=== PATIENT | female | born 2000 | race Caucasian/White ===

== ENCOUNTER 2021-10-19 15:22 | Emergency (ER) | payer OTHER, SELFPAY ==
[2021-10-19 15:30] VITALS: BP 123/61; PULSE 69; RESP 16; TEMP 36.4; O2SAT 100
[2021-10-19 15:35] VITALS: BP 123/61; PULSE 69; RESP 16; TEMP 36.4; O2SAT 100
--- NOTE | 2021-10-19 15:39 | ED.EYEPROB ---
HPI - Eye Problem General Chief complaint: Eye Problems Stated complaint: left eye pain Time Seen by Provider: 10/19/21 15:39 Source: patient and RN notes reviewed Mode of arrival: ambulatory Limitations: no limitations History of Present Illness HPI Narrative: 21-year-old female presents concern for pain, redness, swelling to the left lower eyelid. She reports symptoms started 2 days ago. She denies injury or trauma to the eye. Denies vision changes. Reports she has been using eyedrops and warm compresses without relief. chief complaint: eye pain Related Data Home Medications Medication Instructions Recorded Confirmed No Home Medications 10/19/21 10/19/21 Allergies Allergy/AdvReac Type Severity Reaction Status Date / Time No Known Allergies Allergy Unknown Unverified 07/01/19 14:20 No Known Allergies Allergy Uncoded 07/01/19 14:20 Review of Systems Review of Systems: CONSTITUTIONAL: Denies malaise, chills, sweats, or fever. EYES: Denies visual changes. Reports lower eyelid redness tenderness and swelling with crusty drainage this morning. ENT: Denies rhinorrhea, congestion, sinus pain, otalgia or sore throat. SKIN: Denies rash or itching. NEUROLOGIC: Denies numbness, weakness, or headache. PSYCHIATRIC: Denies anxiety or depression. All systems reviewed & are unremarkable except as noted in HPI and below PMFSH Comments At time of signature, agree with nursing past medical, surgical, social and family history. There is no relevant family history pertinent to the presenting complaint Exam Narrative: GENERAL: Well-appearing, well-nourished, and in no acute distress. HEAD: Normocephalic, atraumatic. EYES: PERRLA, sclera clear, and EOMI. No nystagmus. Bilateral conjunctivae clear. Upper eyelid unremarkable, no periorbital edema noted. Lower lid edematous, erythematous without visual nodule noted to the medial commisure ENT: Mucous membranes moist NECK: Supple. CHEST: No respiratory distress. Speaks in full sentences. HEART: Regular rate and rhythm. SKIN: Warm, dry, no visible rash. NEURO: Alert and oriented x3. PSYCH: Normal mood and affect Course Course Emergency Course: Patient is aware of diagnosis, understands and agrees to treatment plan. Anticipatory guidance given. Patient agrees to follow-up as directed and is aware of reasons to seek care at the emergency department. Portions of this record may have been created with voice recognition software Level of Care: Express Care Visit Vital Signs Vital signs: Vital Signs Temperature 97.6 F 10/19/21 15:30 Pulse Rate 69 10/19/21 15:30 Respiratory Rate 16 10/19/21 15:30 Blood Pressure 123/61 10/19/21 15:30 Pulse Oximetry 100 10/19/21 15:30 Temperature 97.6 F 10/19/21 15:35 Pulse Rate 69 10/19/21 15:35 Respiratory Rate 16 10/19/21 15:35 Blood Pressure 123/61 10/19/21 15:35 Pulse Oximetry 100 10/19/21 15:35 Reviewed. MDM - Eye Problem MDM Narrative Medical decision making narrative: Consideration of the following conditions may be warranted for the presenting problem, they are not final diagnoses: Bacterial conjunctivitis, allergic conjunctivitis, viral conjunctivitis, foreign body, blepharitis, chalazion, hordeolum, corneal abrasion, preseptal cellulitis, orbital cellulitis. No evidence of proptosis, ophthalmoplegia, vision loss, pain with eye movement. Exam findings show no acute concerns or changes; patient is non-toxic appearing and is in no distress. Patient is appropriate for outpatient treatment and follow-up. Critical Care Time Critical Care Time Critical Care Time: No Discharge Plan Discharge Clinical Impression: Infection of eyelid Patient Disposition: Home, Self-Care Condition: Stable Instructions: Antibiotic Form Additional Instructions: Do not touch or rub your eye. Use a warm on your eye 3-5 times daily Use eyedrops as directed, take antibiotics as directed Practice [facility]
== END 2021-10-19 16:03 | disposition home or self-care (01) ==
PROVIDERS: Emergency Provider Nurse Practitioner; PCP Physician Assistant
DX: H01.9 Unspecified inflammation of eyelid (principal); M41.9 Scoliosis, unspecified
CPT/HCPCS: 99213; G0463

== ENCOUNTER 2022-12-13 10:29 | Emergency (ER) | payer OTHER, SELFPAY ==
[2022-12-13] VITALS (13 sets, daily range): BP systolic 104–132; BP diastolic 51–70; PULSE 95–127; RESP 18–20; TEMP 36.2; O2SAT 97–100
--- NOTE | ~2022-12-13 | CT_ITS ---
EXAMINATION: CT abdomen pelvis w con DATE: 12/13/2022 11:52 INDICATION: Abdominal pain with nausea, vomiting and diarrhea. TECHNIQUE: Computed tomography (CT) of the abdomen and pelvis was performed with 100 mL Omnipaque-350 intravenous contrast. Automated exposure control and iterative reconstruction technique were employe d. The dose-length product was 1619.52 mGy-cm. COMPARISON: 07/01/2019 FINDINGS: Lung bases are clear. Heart size is normal. No pericardial or pleural effusion. 2.1 cm and 1.5 cm sub tle enhancing nodules in the right hepatic lobe. The gallbladder, spleen, pancreas, bilateral adrenal glands and kidneys are normal. There is some fluid scattered throughout the large and small bowel co nsistent with provided history of diarrhea. No bowel obstruction. Normal appendix. Bladder, uterus an d bilateral adnexa are normal. No free intraperitoneal gas or fluid. No pathologically enlarged abdom inal or pelvic lymphadenopathy. Very small fat-containing umbilical hernia. Instrumented C5-T12 poste rior spinal fusion with bilateral vertical missael and pedicle screw fixation. Mild lumbar levoscoliosis with mild spondylosis. IMPRESSION: 1. Fluid scattered throughout the large and small bowel consistent with provided history of diarrhea. No other acute intra-abdominal/pelvic process. 2. A couple indeterminate subtly enhancing right hepatic lobe nodules the larger measuring 2.1 cm. Gi kirsten patient age and in the absence of known history of liver disease or malignancy favor a benign sarkis ology such as focal nodular hyperplasia or hepatic adenoma. Would recommend further evaluation with m ultiphase pre and postcontrast MRI. Reviewed, dictated and finalized at location A. K CARRIER IMPRESSION: 1. Fluid scattered throughout the large and small bowel consistent with provide d history of diarrhea. No other acute intra-abdominal/pelvic process. 2. A couple indeterminate subtly enhancing right hepatic lobe nodules the large r measuring 2.1 cm. Given patient age and in the absence of known history of li martha disease or malignancy favor a benign etiology such as focal nodular hyperpl lori or hepatic adenoma. Would recommend further evaluation with multiphase pre and postcontrast MRI.
--- NOTE | 2022-12-13 10:46 | ED.NAVMDI ---
HPI - Nausea/Vomiting/Diarrhea General Chief complaint: Nausea/Vomiting/Diarrhea Stated complaint: N/V/D X1D Time Seen by Provider: 12/13/22 10:34 Source: patient Mode of arrival: ambulatory Limitations: no limitations History of Present Illness HPI Narrative: 22-year-old female with history of PCOS and IBS presents today with complaints of nausea, vomiting, diarrhea, and fever that started last night. Patient states the last thing that she ate prior to getting sick was a hamburger from [employer]. Her significant other is at the right great wing without any symptoms. Patient states she has been unable to keep any liquids down since she started vomiting yesterday. She did have some generalized abdominal pain but mostly when she is trying to eat or drink anything. Abdomen currently is not painful. Denies dysuria, hematuria, urgency. She does endorse some low back pain patient does have history of scoliosis with surgery. Related Data Allergies Allergy/AdvReac Type Severity Reaction Status Date / Time No Known Allergies Allergy Unknown Verified 12/13/22 10:38 Review of Systems Review of Systems: CONSTITUTIONAL: Denies fever, chills, or sweats. EYES: Denies visual changes, redness, or discharge. ENT: Denies rhinorrhea, congestion, sore throat, or otalgia. CARDIOVASCULAR: Denies chest pain, palpitations, or edema. RESPIRATORY: Denies cough or dyspnea. GASTROINTESTINAL: Abdominal pain, nausea, vomiting, diarrhea. GENITOURINARY: Denies dysuria or hematuria. SKIN: Denies rash or itching. MUSCULOSKELETAL: Low back pain. Denies joint pain, or myalgia. NEUROLOGIC: Denies headache, numbness, dizziness, or weakness. PSYCHIATRIC: Denies anxiety or depression. [facility] Past Medical History Medical History History of IBS PCOS (polycystic ovarian syndrome) Surgical History Surgical History Previous back surgery Social History Social History (Updated 09/17/22 @ 14:41 by Katia Mascorro MA) Smoking status: Never smoker Alcohol intake: never Substance use: never Living arrangements: with family Occupation/Education: occupation Gender identity (if verbalized by the patient): Female Sexual Orientation (if Verbalized by the Patient): Straight or Heterosexual Exam Narrative: GENERAL: ill appearing, non toxic, no acute distress. HEAD: Normocephalic, atraumatic. EYES: PERRLA and EOMI. NECK: Supple. No adenopathy or masses. No carotid bruits or JVD CHEST: Clear to auscultation. No respiratory distress. No wheezes rales or rhonchi HEART: Regular rate and rhythm. No murmur heard. Normal peripheral pulses. ABDOMEN: Soft, nontender, nondistended, normal active bowel sounds. EXTREMITIES: Normal range of motion. No edema. SKIN: pale, Warm, dry, no rash. NEURO: No focal deficits. Alert and oriented x3. PSYCH: Normal mood and affect. Course Course Emergency Course: Patient with improvement in heart rate. IV antibiotics completed. Able to tolerate p.o. fluids. Discussed CAT scan with patient she is aware for follow-up. Patient to be discharged home. Vital Signs Vital signs: Vital Signs Temperature 97.2 F L 12/13/22 10:31 Pulse Rate 127 H 12/13/22 10:31 Respiratory Rate 19 12/13/22 10:31 Blood Pressure 126/70 12/13/22 10:31 Pulse Oximetry 100 12/13/22 10:31 Oxygen Delivery Room Air 12/13/22 10:31 Temperature 97.2 F L 12/13/22 10:31 Pulse Rate 95 12/13/22 12:46 Respiratory Rate 20 12/13/22 12:46 Blood Pressure 105/59 L 12/13/22 12:46 Pulse Oximetry 98 12/13/22 12:46 Oxygen Delivery Room Air 12/13/22 10:31 MDM - Nausea/Vomiting/Diarrhea MDM Narrative Medical decision making narrative: 22-year-old female HPI as noted. As well as as below. Work-up to include CBC, CMP, urinalysis, test. Patient to receive 2 L of IV fluids due to tachycardia with Zofran and Pepc
[2022-12-13] MEDS: SODIUM CHLORIDE 0.9% IV 2,000 ML 999 ML IV CONT (10:52)
[2022-12-13] MEDS: ONDANSETRON INJ 4 MG/2 ML VIAL IV PUSH (10:53)
[2022-12-13] MEDS: FAMOTIDINE 20 MG/2 ML VIAL IV PUSH (10:53)
[2022-12-13 11:03] LABS: Basophils Absolute Auto 0.1 K/mm3 (0.0-0.1); Basophils Percent Auto 0.4 % (0.2-1.2); Eosinophils Percent Auto 0.1 % (0-4.4); Hematocrit 43.1 % (37.0-47.0); Hemoglobin 14.3 g/dL (12.0-15.0); Immature Granulocyte Absolute 0.05 K/mm3 (0.00-0.031); Immature Granulocyte Percent A 0.4 % (0-0.5); Lymphocytes Absolute Auto 0.79 K/mm3 (0.9-3.2); Lymphocytes Percent Auto 6.2 % (18.3-44.2); Mean Corpuscular HGB Conc 33.2 g/dl (32-36); Mean Corpuscular Hemoglobin 29.9 pg (26-34); Mean Corpuscular Volume 90.2 fl (80-100); Monocytes Absolute Auto 0.6 K/mm3 (0.1-0.6); Monocytes Percent Auto 4.8 % (2.6-8.5); Neutrophils Absolute Auto 11.3 K/mm3 (1.3-6.7); Neutrophils Percent Auto 88.1 % (45.5-73.1); Platelet Count Result 242 k/mm3 (150-375); Red Blood Count 4.78 M/mm3 (4.2-5.4); Red Cell Distribution Width 11.9 % (11.5-14.5); White Blood Count 12.8 K/mm3 (4.5-10.0)
[2022-12-13 11:04] LABS: Appearance Urine Slightly Cloudy (Clear); Bilirubin Urine 1+ (Negative); Blood Urine Negative (Negative); Color Urine Yellow (Yellow); Glucose Urine UA Negative (Negative); Ketones Urine Negative (Negative); Leukocyte Esterase Ur Trace LEU/UL (Negative); Nitrate Urine Negative (Negative); Protein Urine 2+ mg/dL (Negative); Specific Grav Ur >= 1.030 (1.001-1.035); Urobilinogen Urine 0.2 mg/dL (<2.0)
[2022-12-13 11:12] LABS: Alanine Aminotransferase 78 U/L (6-35); Albumin Level 4.6 g/dL (3.5-5.1); Alkaline Phosphatase 97 U/L (38-126); Anion Gap 9 mmol/L (8-16); Aspartate Amino Transferase 50 U/L (14-36); Bilirubin,Total 1.5 mg/dL (0.2-1.3); Blood Urea Nitrogen 18 mg/dL (7-17); Calcium 8.8 mg/dL (8.4-10.2); Carbon Dioxide 26 mmol/L (22-30); Chloride 103 mmol/L (98-107); Estimated CRCL calculation 141 ml/min; Estimated Glomerular Filt Rate > 60; Glucose 134 mg/dL (65-110); Lipase 62 U/L (23-300); Potassium 3.6 mmol/L (3.4-5.0); Sodium 138 mmol/L (137-145)
[2022-12-13 11:25] LABS: Bacteria Urine 4+ /hpf; Mucus Urine Present /lpf; Squamous Epithelial Cell Urine Many /hpf (Few); WBC Urine 21-50 /hpf
[2022-12-13 11:26] LABS: Add Urine Microscopic? YES
[2022-12-13 11:48] LABS: Influenza A QL RT-PCR Negative (Negative); Influenza B QL RT-PCR Negative (Negative); SARS-CoV-2 RNA PCR Negative
[2022-12-13] MEDS: KETOROLAC 30 MG/ML VIAL (*BKC) IV PUSH (12:03)
== END 2022-12-13 13:07 | disposition home or self-care (01) ==
PROVIDERS: Emergency Provider Nurse Practitioner Family; PCP Physician Assistant
DX: K52.9 Noninfective gastroenteritis and colitis, unspecified (principal); N39.0 Urinary tract infection, site not specified; Z20.822 Contact with and (suspected) exposure to COVID-19
CPT/HCPCS: 36415; 74177; 80053; 81001; 81025; 83690; 85025; 87086; 87088; 87636; 96361; 96365; 96375; 99284; J0696; J1885; J2405; J7030; Q9967

== ENCOUNTER 2022-12-26 07:04 | Outpatient (CLI) | payer OTHER, SELFPAY ==
--- NOTE | ~2022-12-26 | MR_ITS ---
EXAMINATION: MR abdomen wo/w con DATE: 12/26/2022 08:04 INDICATION: Liver nodule TECHNIQUE: Magnetic resonance imaging (MRI) of the abdomen was performed without and with repeat mL M ultihance intravenous contrast. Sequences included coronal T2-weighted SS-FSE, coronal and axial FS 2D-FIESTA, axial STIR FSE, axial T2-weighted SS-FSE, axial T2-weighted FS SS-FSE, axial diffusion-swapna ghted SE, axial dual-echo T1-weighted FSPGR, and axial and coronal T1-weighted LAVA. Postcontrast axi al T1-weighted LAVA images were obtained in a time course. Postcontrast coronal T1-weighted LAVA imag es were obtained. COMPARISON: CT abdomen and pelvis dated 12/13/2022 FINDINGS: Arch size is normal. No pericardial or pleural effusion. There is prominent magnetic field artifact a ssociated with bilateral vertical missael and pedicle screw fixation extending throughout much of the tho racic spine. Gallbladder, spleen, pancreas, bilateral adrenal glands and kidneys are normal. Diffuse hepatic steatosis with signal dropout on opposed phase imaging. There is 6 enhancing lesions scattere d throughout the right hepatic lobe which demonstrates subtle restricted diffusion and which demonstr ate early arterial phase enhancement which persists on the 5 and 10 minute delayed images with no was hout. The are somewhat ill-defined margins to the enhancement. The 2 largest lesions measure proximal 1.8 cm and 1.2 cm. Visualized portion of the bowels are unremarkable. No pathologically enlarged abd ominal lymphadenopathy. Where not obscured by magnetic field artifact the bone marrow signal is moody l. Lumbar levoscoliosis. IMPRESSION: 1. There are 6 small enhancing lesions scattered throughout the right hepatic lobe measuring up to 1. 8 cm which demonstrate early arterial phase enhancement which persists through the 10 minute delayed images. Differential in order of likelihood would include focal nodular hyperplasia, hepatic adenoma and hemangioma. No evident washout to elevate suspicion for malignancy/metastatic disease which would also be unlikely given patient age and in the absence of known prior malignancy. Reviewed, dictated and finalized at location A. IMPRESSION: 1. There are 6 small enhancing lesions scattered throughout the right hepatic l obe measuring up to 1.8 cm which demonstrate early arterial phase enhancement w hich persists through the 10 minute delayed images. Differential in order of li kelihood would include focal nodular hyperplasia, hepatic adenoma and hemangiom a. No evident washout to elevate suspicion for malignancy/metastatic disease wh ich would also be unlikely given patient age and in the absence of known prior malignancy.
== END 2022-12-26 07:05 | disposition home or self-care (01) ==
PROVIDERS: PCP Physician Assistant; Visit Provider Physician Assistant
DX: K76.9 Liver disease, unspecified (principal)
CPT/HCPCS: 74183; A9577

== ENCOUNTER 2023-03-29 19:14 | Emergency (ER) | payer OTHER, SELFPAY ==
[2023-03-29 19:28] VITALS: BP 133/77; PULSE 104; RESP 15; TEMP 36.6; O2SAT 98
[2023-03-29 20:02] LABS: Appearance Urine Turbid (Clear); Bacteria Urine 4+ /hpf; Bilirubin Urine 1+ (Negative); Blood Urine 3+ (Negative); Color Urine Dark Yellow (Yellow); Glucose Urine UA Negative (Negative); Ketones Urine Trace mg/dL (Negative); Leukocyte Esterase Ur 2+ LEU/UL (Negative); Mucus Urine Present /lpf; Nitrate Urine Negative (Negative); Non Pathogenic Casts 0-2; Protein Urine 2+ mg/dL (Negative); RBC Urine >100 /hpf (0-2); Squamous Epithelial Cell Urine Moderate /hpf (Few); WBC Urine >100 /hpf; pH Urine 5.5 (5.0-9.0)
[2023-03-29 20:03] LABS: Add Urine Microscopic? YES
--- NOTE | 2023-03-29 21:26 | ED.GENADULT ---
HPI - General Adult General Chief complaint: Fever Stated complaint: fever Time Seen by Provider: 03/29/23 20:43 History of Present Illness HPI narrative: This is a 22-year-old female presenting with 2 days of fevers. Patient notes that she has had some pain in her lower abdomen when she urinates as well as increased urinary frequency. She also notes temperatures of 101.2 x 2 days and chills and rigors. Patient denies URI symptoms, chest pain difficulty breathing or abdominal pain. Patient has history of kidney stones and says this is not feel similar. Patient denies vaginal discharge or any concern for STDs. Related Data Allergies Allergy/AdvReac Type Severity Reaction Status Date / Time No Known Allergies Allergy Unknown Verified 12/13/22 10:38 [facility] Past Medical History Medical History History of IBS PCOS (polycystic ovarian syndrome) Surgical History Surgical History Previous back surgery Social History Social History (Updated 09/17/22 @ 14:41 by Katia Mascorro MA) Smoking status: Never smoker Alcohol intake: never Substance use: never Living arrangements: with family Occupation/Education: occupation Gender identity (if verbalized by the patient): Female Sexual Orientation (if Verbalized by the Patient): Straight or Heterosexual Exam Narrative: APPEARANCE: No apparent distress. Head: atraumatic. EYES: EOMI, NOSE: Atraumatic NECK: Trachea midline RESPIRATORY: No increased rate of breathing, clear to auscultation CARDIOVASCULAR: RRR, ABDOMINAL: Abdomen is soft nontender no guarding rebound. No CVA tenderness MUSCULOSKELETAl: No obvious deformities NEURO: Alert. Moving 4/4 extremities SKIN:: Warm, dry. Normal color PSYCHIATRIC: Normal affect Course Vital Signs Vital signs: Vital Signs Temperature 97.8 F 03/29/23 19:28 Pulse Rate 104 H 03/29/23 19:28 Respiratory Rate 15 03/29/23 19:28 Blood Pressure 133/77 03/29/23 19:28 Pulse Oximetry 98 03/29/23 19:28 Oxygen Delivery Room Air 03/29/23 19:28 Temperature 97.8 F 03/29/23 19:28 Pulse Rate 104 H 03/29/23 19:28 Respiratory Rate 15 03/29/23 19:28 Blood Pressure 133/77 03/29/23 19:28 Pulse Oximetry 98 03/29/23 19:28 Oxygen Delivery Room Air 03/29/23 19:28 Medical Decision Making [facility] Narrative Medical decision making narrative: -Presentation: 22-year-old female presenting with fevers and urinary symptoms. -DDX includes but is not limited to: UTI, pyelonephritis, viral syndrome -Co-morbidities complicating care: history of kidney stones, PCOS, IBS -Social determinants of health: patient works at [employer] with her raven Canela -External Chart Review: none -Hx from independent Sources: [facility] at bedside -Independent interpretation of studies: urine was indicative of infection. -Discussion of Management/Consultants: None -Dx tests considered but not ordered: CT abdomen pelvis - patient has a history of kidney stones but is well-appearing with stable vital signs. Infected stone is unlikely. -Procedures: None -Interventions: 1 g ceftriaxone -Shared decision making / Disposition: patient is well-appearing and healthy in general. She is a good candidate for outpatient management. Patient be treated with a 10 day course of cefdinir. -RX Cefdinir 300 mg b.i.d. x 10 days Vital Signs Vital Signs: Vital Signs Temperature 97.8 F 03/29/23 19:28 Pulse Rate 104 H 03/29/23 19:28 Respiratory Rate 15 03/29/23 19:28 Blood Pressure 133/77 03/29/23 19:28 Pulse Oximetry 98 03/29/23 19:28 Oxygen Delivery Room Air 03/29/23 19:28 Temperature 97.8 F 03/29/23 19:28 Pulse Rate 104 H 03/29/23 19:28 Respiratory Rate 15 03/29/23 19:28 Blood Pressure 133/77 03/29/23 19:28 Pulse Oximetry 98 03/29/23 19:28 Oxygen Delivery Room Air
[2023-03-29 21:44] VITALS: TEMP 36.7
== END 2023-03-29 21:46 | disposition home or self-care (01) ==
PROVIDERS: Emergency Provider Emergency Medicine; PCP Physician Assistant
DX: N12 Tubulo-interstitial nephritis, not specified as acute or chronic (principal); K58.9 Irritable bowel syndrome, unspecified; E28.2 Polycystic ovarian syndrome; Z87.442 Personal history of urinary calculi
CPT/HCPCS: 81001; 81025; 87077; 87086; 87088; 87186; 96365; 99284; J0696

== ENCOUNTER 2024-01-27 15:22 | Outpatient (CLI) | payer OTHER, SELFPAY ==
[2024-01-27 16:00] LABS: Beta HCG Quantitative < 2.39 mIU/ML
== END 2024-01-27 15:23 | disposition home or self-care (01) ==
LOC: ANHLAB 15:23
PROVIDERS: PCP Physician Assistant; Visit Provider Obstetrics & Gynecology
DX: N92.6 Irregular menstruation, unspecified (principal)
CPT/HCPCS: 36415; 84702